=== PATIENT | female | born 1930 | race Caucasian/White ===

== ENCOUNTER 2017-05-24 17:28 | Emergency (ER) | payer OTHER ==
[~2017-05-24] VITALS: Ht 160 cm; Wt 54.4 kg
[~2017-05-24 17:28] MED LIST: AMLO5TAB4 PO; ASPI-1063 PO; BENAZEPRIL; DONE10TA44 PO; Dilantin PO; FOLI-43 PO; LISI-219 PO; LOPE2CAP PO; MEMA10TA12 PO; METO50TA7 PO; NAMENDA PO; NITSL SL; PHEN100C4 PO; PRAV40TA PO; RISP0.5T2 PO; [UNRECOGNIZED DRUG - CODE] PO; [UNRECOGNIZED DRUG - CODE] PO
[2017-05-24 17:38] VITALS: BP_SYST 149
--- NOTE | 2017-05-24 17:38 | NUR ---
Patient to ER bed 6 to gown for evaluation. Side rails up. Report given to Rene MAHAN.
--- NOTE | 2017-05-24 17:40 | NUR ---
ER at bedside examining patient.
--- NOTE | 2017-05-24 17:42 | NUR ---
Pt presents to ER c/o L ankle pain and deformity s/p mechanical fall. Pt denies loss of consciousness or trauma to head / kneck. Pt denies CHEST PAIN, SOB, N/V. Pt reports medical history of HTN, DEMENTIA. Pt is AOX4, allergy to sulfa noted. No acute respiratory distress.
--- NOTE | 2017-05-24 17:50 | NUR ---
Radiology at bedside for xray.
--- NOTE | 2017-05-24 18:20 | NUR ---
Short leg posterior splint applied to LLE. + pulse noted. Capillary refill <3 seconds. Patient has ability to move non-splinted digits. Has sensation present to affected site. Skin color within normal limits. Applied for pain management control.
--- NOTE | 2017-05-24 19:22 | NUR ---
Patient and her daughter given written and verbal discharge instructions and verbalizes understanding. ER MD discussed with patient and her daughter the results and treatment provided. Patient in stable condition. ID arm band removed. Rx of tylenol given. Patient educated on pain management and to follow up with PMD. Pain Scale 0/10. Opportunity for questions provided and answered.
[2017-05-24 19:31] VITALS: BP_SYST 137
== END 2017-05-24 19:20 | disposition home or self-care (01) ==
LOC: SED 17:28
DX: S93.402A Sprain of unspecified ligament of left ankle, initial encounter (principal); I10 Essential (primary) hypertension; F03.90 Unspecified dementia, unspecified severity, without behavioral disturbance, psychotic disturbance, mood disturbance, and anxiety; Z79.899 Other long term (current) drug therapy; W19.XXXA Unspecified fall, initial encounter; Y93.89 Activity, other specified; Y92.89 Other specified places as the place of occurrence of the external cause; Y99.8 Other external cause status
CPT/HCPCS: 73560-TC; 99284